=== PATIENT | female | born 1990 ===

== ENCOUNTER 2018-03-20 18:59 | Inpatient (IN) | payer OTHER ==
[2018-03-20 19:27] VITALS: BMI 33.8
[2018-03-20] MEDS ORDERED: Nalbuphine HCL 10 mg/ml Ampule IVP PRN ×2 (20:04→21:45)
[2018-03-20] MEDS: Lactated Ringer's 1,000 ML IV SCH (20:13)
--- NOTE | 2018-03-20 20:20 | OBADHP ---
Datetime: 03/20/2018 20:16 Admit Comment, IP Provider: at 41weeks here for induction for post date, irg ctxs, no vb , lof+ fm obhx primi pmgh de med pnv all nkda psh de soch de ve /-3 a/p at 41weks gfor induction post date admit to l_d npo/ivf labs pain zeke cont alta and efm cervidil pen g anticipate Pelvic Type - PN: Adequate Extremities - PN: Normal Abdomen - PN: Normal Back - PN: Normal Breast - PN: Normal Lungs - PN: Normal Heart - PN: Normal Thyroid - PN: Normal Neurologic - PN: Normal HEENT - PN: Normal General - PN: Normal FHR - Baseline A Provider: 140 Contraction Comments Provider: irrg IP Hx Assessment: The History has been Reviewed and is Current Vital Signs Provider: Reviewed; Within Normal Limits IP Chief Complaint: Scheduled induction of labor NICHD Variability Prov Fetus A: Moderate 6-25bpm NICHD Accel Fetus A IP Provider: 15X15 FHR Category Provider Fetus A: Category I Dilatation, Provider: 1 Effacement, Provider: 50 Station, Provider: -3 Genitourinary Exam: Normal DTRs - PN: Normal EGA AdmitDate IP: 36.6 IP Adm Impression: Term, intrauterine ; Intact Membranes IP Admit Plan: Admit to unit; Initiate labor induction protocol
[2018-03-20 21:31] LABS: BASO % 0.1 % (0.0-2.0); EOS % 0.4 % (0.0-4.0); HEMOGLOBIN 12.8 g/dL (11.0-16.0); LYMPH # 1.6 K/uL (1.0-4.3); LYMPH % 20.4 % (20.0-40.0); MEAN CELL VOLUME 86.1 fL (81.0-99.0); MEAN CORPUSCULAR HEMOGLOBIN 28.4 pg (27.0-31.0); MEAN PLATELET VOLUME 9.5 fL (7.2-11.7); MONO # 0.6 K/uL (0.0-0.8); MONO % 7.8 % (0.0-10.0); NEUT # 5.4 K/uL (1.8-7.0); NEUT % 71.3 % (50.0-75.0); RBC 4.5 Mil/uL (3.80-5.20); RED CELL DISTRIBUTION WIDTH 14.7 % (11.5-14.5); WHITE BLOOD COUNT 7.6 K/uL (4.8-10.8)
[2018-03-20 21:44] LABS: SQUAMOUS EPITHIAL 2 /hpf (0-5); URINE BACTERIA FEW (<OCC); URINE BILIRUBIN NEGATIVE (NEGATIVE); URINE BLOOD NEGATIVE (NEGATIVE); URINE CLARITY Hazy (Clear); URINE COLOR Yellow (YELLOW); URINE GLUCOSE (UA) NORMAL (Normal); URINE LEUKOCYTE ESTERASE 3+ Leu/uL (Negative); URINE PROTEIN 1+ mg/dL (NEGATIVE); URINE UROBILINOGEN NORMAL mg/dL (0.2-1.0)
[2018-03-20 21:45] LABS: ALB/GLOB RATIO 1.2 (1.0-2.1); ALBUMIN 3.6 g/dL (3.5-5.0); ALT/SGPT 55 U/L (9-52); AST/SGOT 34 U/L (14-36); BLOOD UREA NITROGEN 10 mg/dL (7-17); CALCIUM 9.8 mg/dl (8.6-10.4); GFR NON-AFRICAN AMERICAN > 60
[2018-03-21] MEDS ORDERED: OXYTOCIN IV ONE (01:28)
[2018-03-21] MEDS ORDERED: Nalbuphine HCL 10 mg/ml Ampule ONE (01:28)
[2018-03-21] MEDS ORDERED: LR IV ONE (01:28)
[2018-03-21] MEDS: Lactated Ringer's 1,000 ML IV SCH ×3 (02:00→12:30)
[2018-03-21] MEDS ORDERED: Penicillin G 5 Million Unit Vial IVPB ONE (03:56)
[2018-03-21] MEDS ORDERED: Oxytocin 30 UNIT 30 UNITS/500 ML BAG IV SCH ×2 (07:30→18:15)
[2018-03-21] MEDS ORDERED: Fentanyl/Bupivacaine HCl 250 ML EPI ONE (08:08)
[2018-03-21] MEDS ORDERED: Oxytocin 30 UNIT 30 UNITS/500 ML BAG IV ONE (08:16)
[2018-03-21] MEDS: Penicillin G Potassium 2.5 MU in Dextrose 5% In Water 50 ML IV SCH ×3 (09:56→18:03)
[2018-03-21 13:09] LABS: SQUAMOUS EPITHIAL 1 /hpf (0-5); URINE BACTERIA RARE (<OCC); URINE BILIRUBIN NEGATIVE (NEGATIVE); URINE BLOOD 1+ (NEGATIVE); URINE CLARITY Clear (Clear); URINE COLOR Yellow (YELLOW); URINE GLUCOSE (UA) 2+ mg/dL (Normal); URINE LEUKOCYTE ESTERASE 1+ Leu/uL (Negative); URINE PROTEIN NEGATIVE (NEGATIVE); URINE UROBILINOGEN NORMAL mg/dL (0.2-1.0)
[2018-03-21 13:42] LABS: URIC ACID 5.2 mg/dL (2.2-7.5)
--- NOTE | 2018-03-21 14:24 | OBPN ---
Datetime: 03/21/2018 13:22 IP Progress Impression: Normal progression of labor; Reassuring heart rate IP Informed Consent Obtain: Vaginal Delivery IP Procedures: Artificial ROM; Intrauterine Pressure Catheter; Scalp Electrode; Sterile Vag Ex am IP Progress Plan: Continue present management; Augmentation; Antibiotic therapy; Anticipate Vaginal Delivery Membranes, Provider: Ruptured Amniotic Fluid Color, Provider: Meconium, Light Contraction Comments Provider: q 2 mins on toco FHR - Baseline A Provider: 150 IP Progress Note Comment: Pt seen and examined at bedside with attending physician, Dr. Jackson prese nt. AROM performed by Dr. Jackson at bedside at 13:10, meconium present. Pain well controlled on epidural currently. Pitocin running at rate of 14. BP's improved after changing cuff to a larger size Pt without any SorS of PIH Additional PIH labs ordered and pending Pt denies any acute complaints currently, resting comfortably at bedside. Vaginal exam: 6/100/-2; AROM perfomed with meconium present. heart tracing: Cat I, baseline HR 150, moderate accels; contractions q 2 mins on toco A/P: Anticipate vaginal delivery. Continue to monitor pt on L+D. S/P AROM at 13:10. IUPC and scalp electrode placed. Continue to augment labor with pitocin. Plan d/w Dr. Jackson, attending physician. Khari Barr, DO PGY-1 Vital Signs Provider: Reviewed NICHD Accel Fetus A IP Provider: 10X10 FHR Category Provider Fetus A: Category I NICHD Variability Prov Fetus A: Moderate 6-25bpm Dilatation, Provider: 6 Effacement, Provider: 100 Station, Provider: -2 NICHD Decel Fetus A IP Provider: None
--- NOTE | 2018-03-21 15:35 | OBPN ---
Datetime: 03/21/2018 14:57 IP Progress Impression: Normal progression of labor; Reassuring heart rate IP Informed Consent Obtain: Vaginal Delivery IP Procedures: Sterile Vag Exam IP Progress Plan: Continue present management; Augmentation; Antibiotic therapy; Anticipate Vaginal Delivery Membranes, Provider: Ruptured Amniotic Fluid Color, Provider: Meconium, Heavy Contraction Comments Provider: q 2 mins FHR - Baseline A Provider: 145 IP Progress Note Comment: Pt seen and examined at bedside with Dr. Jackson, attending physician, pres ent. Pt denies any acute complaints, reports feeling lower abd pressure. Resting comfortably on right s bettina. Vaginal exam /-2. heart tracing: baseline HR 145, Cat I tracing, moderate accels; contractions q 2 mins on toco Pitocin at 18 Mu/min but MVU only at 160 Willl continue increasing Pitocin to an adequate labor pattern A/P:Anticipate vaginal delivery, continue to monitor on L+D. Continue to augment labor with Pitocin, currently at rate of 16. C/w antiibotic therapy. IUPC and scalp electrode in placeand working well Pain controlled on epidural, continue to monitor. Plan d/w Dr. Jackson, attending physician. Khari Barr, DO PGY-1 Vital Signs Provider: Reviewed NICHD Accel Fetus A IP Provider: 10X10 FHR Category Provider Fetus A: Category I NICHD Variability Prov Fetus A: Moderate 6-25bpm Dilatation, Provider: 9 Effacement, Provider: 100 Station, Provider: -2 NICHD Decel Fetus A IP Provider: None (Annotations: Data stored by CPN on behalf of user)
[2018-03-21] MEDS ORDERED: Lactated Ringer's 500 ML IV ONE (15:44)
[2018-03-21] MEDS ORDERED: Oxycodone/Acetaminophen 5/325 mg Tab PO PRN (20:09)
--- NOTE | 2018-03-21 20:10 | OBDS ---
DELIVERY PERSONNEL Delivery Doctor: Richard Jackson DO MATERNAL INFORMATION Maternal Complications: None Provider Comments: of a viable male from CLAUDIO position, after reducing a Loose CNC x 1 an d over an intact perineum. Apgars 9 and 9 at 1 and 5 mins repectively and weight 8lbs 2oz. Vaginal and left periurethral laceration was repaired without complications. EBL 400 mls Pt and both tolerated the procedure well and remained in LDR room in S_S condition. LABOR SUMMARY EDC: 03/11/2018 00:00 No. Babies in Womb: 1 Attempted: No Labor Anesthesia: Epidural LABOR INFORMATION Reason for Induction: Postterm Cervical Ripening Agents: cervidil in place Oxytocin: Augmentation Group B Beta Strep: Positive (Annotations: 02/07/2018) Antibiotics Time of Last Dose: 180 Steroids Given: None Reason Steroids Not Administered: Not Applicable MEMBRANES Membranes Rupture Method: Artificial Rupture of Membranes: 03/21/2018 13:10 Length of Rupture (hrs): 6.02 Amniotic Fluid Color: Heavy Meconium Amniotic Fluid Amount: Small Amniotic Fluid Odor: Normal STAGES OF LABOR Stage 3 hrs: 0 Stage 3 min: 9 VAGINAL DELIVERY Episiotomy: None Laceration Extension: N/A Laceration Type: Vaginal; Periurethral Laceration Repair: Yes Laceration Repair Note: 2-0 Vicryl utilized to repair laceration and without any complications Sponge Count Correct: Yes Sharps Count Correct: Yes BABY A INFORMATION Infant Delivery Date/Time: 03/21/2018 19:11 Method of Delivery: Vaginal Born in Route : No SHOULDER DYSTOCIA BABY A Infant Delivery Date/Time: 03/21/2018 19:11 PRESENTATION/POSITION BABY A Presentation: Cephalic Cephalic Presentation: Vertex Vertex Position: Left Occipital Anterior Breech Presentation: N/A PLACENTA INFORMATION BABY A Placenta Delivery Time : 03/21/2018 19:20 Placenta Method of Delivery: Spontaneous SCORES BABY A Heart Rate 1 min: >100 bpm Resp Effort 1 min: Good Cry Reflex Irritability 1 min: Cough or Sneeze or Pulls Away Muscle Tone 1 min: Active Motion Color 1 min: Body [place], Extremities Blue SCORE 1 MIN: 9 INFANT INFORMATION BABY A Gestational Age at Delivery: 41.3 Gestational Status: Term Outcome : Liveborn Condition : Stable Sex: Male IDENTIFICATION/MEDS BABY A ID Band Number: [id number] Sensor Number: [id number] WEIGHT/LENGTH BABY A Birthweight (gms): 3700 Weight (lb): 8 Weight (oz): 2
[2018-03-21 21:53] VITALS: RESP 18
[2018-03-21] MEDS: Benzocaine/Menthol 20%-0.5% Topical Spray (60 ml) TOP PRN (23:28)
[2018-03-22 07:07] LABS: BASO % 0.1 % (0.0-2.0); EOS % 0.1 % (0.0-4.0); HEMOGLOBIN 9.8 g/dL (11.0-16.0); LYMPH # 2.1 K/uL (1.0-4.3); LYMPH % 16.6 % (20.0-40.0); MEAN CELL VOLUME 86.5 fL (81.0-99.0); MEAN CORPUSCULAR HEMOGLOBIN 28.8 pg (27.0-31.0); MEAN CORPUSCULAR HGB CONC 33.3 g/dL (33.0-37.0); MONO # 0.9 K/uL (0.0-0.8); MONO % 6.9 % (0.0-10.0); NEUT # 9.8 K/uL (1.8-7.0); NEUT % 76.3 % (50.0-75.0); NRBC % 0.1 % (0.0-2.0); RBC 3.39 Mil/uL (3.80-5.20); RED CELL DISTRIBUTION WIDTH 14.9 % (11.5-14.5); WHITE BLOOD COUNT 12.8 K/uL (4.8-10.8)
[2018-03-22] MEDS: Benzocaine/Menthol 20%-0.5% Topical Spray (60 ml) TOP PRN (17:25)
--- NOTE | 2018-03-23 09:01 | OBDCSUM ---
Datetime: 03/23/2018 08:59 Discharged to, Provider: Home Disch Instr Activity: Normal activity Disch Instr Diet: Regular Discharge Instructions, Provider: Routine instructions given Discharge Diagnosis, Provider: Term Delivered Discharge Time: 03/23/2018 08:59 Disch Referrals: None Contraception discussed, Prov: No Disch Activity Restrictions: No exercising; No lifting Discharge Comment, Provider: follow up [address] Signature: alfred hough Datetime: 03/23/2018 08:51 Discharged to, Provider: Home Follow up at, Provider: katherine Disch Instr Activity: Normal activity Disch Instr Diet: Regular Follow up in weeks, Provider: 6 weeks Disch Referrals: None Disch Activity Restrictions: No lifting; Minimize stair-climbing; No sexual activity; Nothing in vag jed - Elbe, tampons, douche
[2018-03-23] MEDS ORDERED: Influenza Vaccine 60 MCG/0.5 ML SYR (3 yr & up) IM ONE (10:00)
[2018-03-23 20:22] VITALS: BP 118/74; PULSE 90; TEMP 98.1; O2SAT 98
== END 2018-03-23 16:00 | disposition home or self-care (01) | DRG 373 ==
LOC: C.EROB 18:59 → C.4D 19:42 → C.4M 03-21 21:39
PROVIDERS: ADMIT Obstetrics & Gynecology; ATTEND Obstetrics & Gynecology
PROC: 10E0XZZ Delivery of Products of Conception, External Approach (ICD-10-PCS; principal; 2018-03-21)
PROC: 3E0P7VZ Introduction of Hormone into Female Reproductive, Via Natural or Artificial Opening (ICD-10-PCS; 2018-03-21)
PROC: 10907ZC Drainage of Amniotic Fluid, Therapeutic from Products of Conception, Via Natural or Artificial Opening (ICD-10-PCS; 2018-03-21)
PROC: 0UQMXZZ Repair Vulva, External Approach (ICD-10-PCS; 2018-03-21)
DX: O48.0 Post-term pregnancy (principal); O77.0 Labor and delivery complicated by meconium in amniotic fluid; O99.824 Streptococcus B carrier state complicating childbirth; O69.81X0 Labor and delivery complicated by cord around neck, without compression, not applicable or unspecified; O71.82 Other specified trauma to perineum and vulva; Z3A.41 41 weeks gestation of pregnancy; Z37.0 Single live birth